=== PATIENT | male | born 1980 | race African-American/Black ===

== ENCOUNTER 2022-08-12 21:22 | Emergency (ER) | payer SELFPAY ==
[~2022-08-12] VITALS: Ht 177.8 cm; Wt 83.0 kg
[2022-08-13] MEDS ORDERED: HYDROCODONE/ACETAMINOPHEN 5/325MG TABLET PO ONE (01:00)
[2022-08-13] MEDS ORDERED: LIDOCAINE HCL 1% 20ML VIAL (Pyxis) INJ INFIL ONE (01:00)
[2022-08-13] MEDS ORDERED: TETANUS, DIPHTHERIA, PERTUSSIS VAC/PF 0.5ML (>10YR OLD) IM ONE (01:00)
[2022-08-13] MEDS ORDERED: ACET-2708 MT (02:51)
[2022-08-13] MEDS ORDERED: BACITRACIN ZINC OINT UDPKT TOP ONE (03:00)
[2022-08-13 03:15] VITALS: BP 145/75
== END 2022-08-13 03:30 | disposition home or self-care (01) ==
LOC: ER 21:22
DX: S01.01XA Laceration without foreign body of scalp, initial encounter (principal); X99.1XXA Assault by knife, initial encounter; Y93.89 Activity, other specified; Y92.018 Other place in single-family (private) house as the place of occurrence of the external cause
CPT/HCPCS: 12002; 73590; 90471; 90715; 93971; 99284; Z7610